=== PATIENT | male | born 1970 | race American Indian/Alaskan Native ===

== ENCOUNTER 2018-05-20 19:43 | Emergency (ER) | payer MEDICAID, MEDICARE ==
[2018-05-20] MEDS ORDERED: ZOFRAN IV STA (20:59)
[2018-05-20] MEDS ORDERED: TORADOL IV STA (20:59)
--- NOTE | 2018-05-20 21:01 | Emergency Department Report ---
Blank Doc - Documentation Documentation: abdominal pain right lower quad abdominal pain for 1 day. nausea without vomit or diarrhea
[2018-05-20 21:43] LABS: Basophils % (Auto) 0.1 % (0.0-1.8); Eosinophils % (Auto) 0.3 % (0.0-4.3); Hematocrit 42.3 % (35.5-45.6); Hemoglobin 13.9 gm/dl (11.8-15.2); Lymphocytes # (Auto) 2.4 K/mm3 (1.2-5.4); Lymphocytes % (Auto) 21.4 % (13.4-35.0); Mean Corpuscular HGB Conc 33 % (32-34); Mean Corpuscular Volume 89 fl (84-94); Monocytes # (Auto) 0.7 K/mm3 (0.0-0.8); Monocytes % (Auto) 6.4 % (0.0-7.3); Platelet Count 170 K/mm3 (140-440); Red Blood Count 4.77 M/mm3 (3.65-5.03); Red Cell Distribution Width 13.8 % (13.2-15.2)
[2018-05-20 21:57] LABS: Alanine Aminotransferase 72 units/L (7-56); Albumin 4.5 g/dL (3.9-5); BUN/Creatinine Ratio 16; Blood Urea Nitrogen 16 mg/dL (9-20); Calcium 10.1 mg/dL (8.4-10.2); Hemolysis Index 45
[2018-05-20 21:59] LABS: Bilirubin,Direct 0.3 mg/dL (0-0.2)
--- NOTE | 2018-05-20 23:56 | Cat Scan Report ---
PROCEDURE: CT ABDOMEN PELVIS W CON TECHNIQUE: Computerized axial tomography of the abdomen and pelvis was performed after the IV inject ion of iodinated nonionic contrast. CT DOSE LENGTH PRODUCT: mGycm HISTORY: Abdominal Pain COMPARISONS: None . FINDINGS: Liver, spleen, and adrenal glands are within normal limits. Bilateral kidneys demonstrate normal enha ncement without hydronephrosis. Urinary bladder is normally distended with normal outlines. Pancreati c duct is dilated with multiple calculi.. Aorta is of normal caliber. There is no free fluid or free air. Gallbladder is well-distended with normal outlines. Small bowel loops are within normal limits a ppendix is normal. There is mild degree of prostatomegaly. Vertebral height is normal. IMPRESSION: Chronic pancreatitis with dilated pancreatic duct Mild degree of prostatomegaly This document is electronically signed by Rito Soriano MD., May 20 2018 11:54:08 PM ET
[2018-05-21 00:23] LABS: Bilirubin,Urine NEG (Negative); Blood,Urine NEG (Negative); Color,Urine Amber (Yellow); Mucus,Urine 1+ /HPF; Urobilinogen,Urine < 2.0 mg/dL (<2.0)
[2018-05-21] MEDS ORDERED: DILAUDID IV ONE ×2 (01:15→03:28)
[2018-05-21] MEDS ORDERED: NACL 0.9% 1000 ML 1,000 ML IV ONE (01:15)
[2018-05-21] MEDS ORDERED: ZOFRAN IV ONE ×2 (01:16→03:28)
[2018-05-21] MEDS ORDERED: ZOFRAN ONE ×2 (01:17→03:27)
[2018-05-21] MEDS ORDERED: NACL 0.9% 1000 ML 1,000 ML ONE (01:18)
[2018-05-21] MEDS ORDERED: DILAUDID ONE ×3 (01:18→03:28)
--- NOTE | 2018-05-21 01:56 | Emergency Department Report ---
ED Abdominal Pain HPI - General Chief Complaint: Abdominal Pain Stated Complaint: ABD PAIN/NAUSEA Time Seen by Provider: 05/20/18 20:58 Source: patient Mode of arrival: Ambulatory Limitations: No Limitations - History of Present Illness Initial Comments: 47-year-old -[place] male comes to the emergency room reporting abdominal pain. Patient reports that he's had nausea but has not vomited. Patient reports is not able to eat secondary to nausea and abdominal pain. Patient denies any alcohol use no new medications. Patient denies any fever no chills. Patient reports that he took a hard or cold on this a.m. Patient does have a past past medical history of acute pancreatitis and diabetes. MD Complaint: abdominal pain Location: RLQ Radiation: none Migration to: no migration Severity: severe Severity scale (0 -10): 8 Quality: aching, sharp Consistency: constant Improves With: nothing Worsens With: movement Associated Symptoms: nausea. denies: vomiting, diarrhea, constipation - Related Data Home Medications Medication Instructions Recorded Confirmed Last Taken Gemfibrozil [Lopid] 600 mg PO BID 08/15/13 04/22/14 04/21/14 [place]-3 Fatty Acids [Fish Oil] 1,200 mg PO BID 08/15/13 04/22/14 02/04/14 Pravastatin Sodium [Pravastatin] 10 mg PO HS 08/15/13 04/22/14 02/04/14 Insulin Glargine,Hum.rec.anlog 46 units SQ HS 02/05/14 04/21/14 04/21/14 [Lantus] Niacin [Niacin ER] 500 mg PO BID 04/21/14 04/21/14 Unknown Previous Rx's Medication Instructions Recorded Last Taken Type Insulin Aspart [NovoLOG 100 10 unit SQ AC #1 vial 04/23/14 Unknown Rx UNITS/ML VIAL] Omeprazole [PriLOSEC] 40 mg PO DAILY #30 capsule. 04/23/14 Unknown Rx Oxycodone HCl [Oxecta] 10 mg PO Q8H PRN #30 tablet.orl 04/23/14 Unknown Rx Oxycodone HCl/Acetaminophen 1 each PO Q4-6H PRN #10 tablet 05/21/18 Unknown Rx [Percocet 10/325 mg] Allergies Allergy/AdvReac Type Severity Reaction Status Date / Time morphine Allergy Unknown Verified 02/05/14 00:18 ED Review of Systems ROS: Stated complaint: ABD PAIN/NAUSEA Other details as noted in HPI Comment: All other systems reviewed and negative Gastrointestinal: abdominal pain, nausea ED Past Medical Hx - Past Medical History Previous Medical History?: Yes Hx Congestive Heart Failure: No Hx Diabetes: Yes Hx Asthma: No Hx COPD: No Hx HIV: No Additional medical history: pancreatitis - Surgical History Past Surgical History?: Yes Additional Surgical History: bowel S/P - Social History Smoking Status: Current Every Day Smoker Substance Use Type: None - Medications Home Medications: Home Medications Medication Instructions Recorded Confirmed Last Taken Type Gemfibrozil [Lopid] 600 mg PO BID 08/15/13 04/22/14 04/21/14 History [place]-3 Fatty Acids [Fish Oil] 1,200 mg PO BID 08/15/13 04/22/14 02/04/14 Histo ry Pravastatin Sodium [Pravastatin] 10 mg PO HS 08/15/13 04/22/14 02/04/14 History Insulin Glargine,Hum.rec.anlog 46 units SQ HS 02/05/14 04/21/14 04/21/14 History [Lantus] Niacin [Niacin ER] 500 mg PO BID 04/21/14 04/21/14 Unknown History Insulin Aspart [NovoLOG 100 10 unit SQ AC #1 vial 04/23/14 Unknown Rx UNITS/ML VIAL] Omeprazole [PriLOSEC] 40 mg PO DAILY #30 capsule. 04/23/14 Unknown Rx Oxycodone HCl [Oxecta] 10 mg PO Q8H PRN #30 tablet.orl 04/23/14 Unknown Rx Oxycodone HCl/Acetaminophen 1 each PO Q4-6H PRN #10 tablet 05/21/18 Unknown Rx [Percocet 10/325 mg] ED Physical Exam - General Limitations: No Limitations General appearance: alert, in no apparent distress - Head Head exam: Present: atraumatic, normocephalic - Eye Eye exam: Present: normal appearance - ENT ENT exam: Present: mucous membranes moist - Respiratory Respiratory exam: Present: normal lung sounds bilaterally. Absent: respiratory distress - Cardiovascular Cardiovascular Exam: Present: regular rate, normal rhythm. Absent: systolic murmur, diastolic murmur, rubs, gallop - GI/Abdominal GI/Abdominal exam: Present: soft, tenderness. Absent: distended - Extremities Exam Extremities exam: Present: normal inspection, full ROM - Back Exam Back exam: Present: normal inspection - Neurological Exam Neurological exam: Present: alert, oriented X3 - Psychiatric Psychiatric exam: Present: normal affect, normal mood - Skin Skin exam: Present: warm, dry, intact, normal color. Absent: rash ED Course Vital Signs 05/20/18 05/21/18 20:59 00:30 Temperature 97.8 F Pulse Rate 67 Respiratory 16 20 Rate Blood Pressure 110/71 O2 Sat by Pulse 98 Oximetry - Reevaluation(s) Reevaluation #1: 05/21/18 05:20 Patient reports he feels much better after having 2 rounds of Dilaudid 2 mg with Zofran 4 mg 2. Patient's had 1 L of fluid. ED Medical Decision Making - Lab Data Result diagrams: 05/20/18 21:33 05/20/18 21:33 - Radiology Data Radiology results: report reviewed CT abdomen with contrast, impression: Chronic pancreatitis with dilated pancreatic duct mild degree of prostatomegaly. - Medical Decision Making Patient has been evaluated by this provider in fast track. Patient's had CBC CMP CT with contrast, Dilaudid total of 4 mg IV, Zofran total of 8 mg IV, normal saline total 1 L. Patient will be discharged home with a follow-up with his regional driver or primary care provider. Patient verbalizes understanding Critical care attestation.: If time is entered above; I have spent that time in minutes in the direct care of this critically ill patient, excluding procedure time. ED Disposition Clinical Impression: Chronic pancreatitis Qualifiers: Pancreatitis type: other Qualified Code(s): K86.1 - Other chronic pancreatitis Disposition: - TO HOME OR SELFCARE Is pt being admited?: No Does the pt Need Aspirin: No Condition: Stable Instructions: Biliary Colic (ED), Acute Abdominal Pain (ED) Additional Instructions: Please take pain medication as prescribed. Do not operate heavy machinery while taking pain medications. Follow-up with her regional driver. Prescriptions: Oxycodone HCl/Acetaminophen [Percocet 10/325 mg] 1 each PO Q4-6H PRN #10 tablet PRN Reason: Pain Referrals: [facility]CTOR [Primary Care Provider] - 3-5 Days [facility] [Provider Group] - 3-5 Days [facility] [Provider Group] - 3-5 Days Forms: Work/School Release Form(ED), Accompanied Note
[2018-05-21 03:22] VITALS: BP 128/84
[2018-05-21] MEDS ORDERED: BENADRYL IV ONE (04:28)
[2018-05-21] MEDS ORDERED: BENADRYL ONE (04:32)
== END 2018-05-21 05:44 | disposition home or self-care (01) ==
LOC: ED 19:43
DX: K86.1 Other chronic pancreatitis (principal); F17.200 Nicotine dependence, unspecified, uncomplicated; E11.9 Type 2 diabetes mellitus without complications; Z98.890 Other specified postprocedural states
CPT/HCPCS: 36415; 74177; 80048; 80076; 81001; 83690; 85025; 96361; 96374; 96375; 96376; 99284; J1170; J1200; J1885; J2405; J7030; Q9967

== ENCOUNTER 2019-06-11 12:25 | Outpatient (CLI) | payer OTHER ==
--- NOTE | 2019-06-11 13:36 | Mammography Report ---
BILATERAL DIGITAL DIAGNOSTIC MAMMOGRAM WITH CAD -- 06/11/2019 RIGHT LIMITED BREAST ULTRASOUND INDICATION: Patient presents for evaluation of right breast pain and six-month follow-up of probably benign gynecomastia in the right breast. TECHNIQUE: Digital bilateral mammographic imaging was performed. Limited ultrasound was performed. T his examination was interpreted with the benefit of Computer-Aided Detection (CAD) analysis. COMPARISON: Prior mammogram and right breast ultrasound 12/24/2018 FINDINGS: Breast Density: There are scattered areas of fibroglandular density. MAMMOGRAPHIC FINDINGS: There is no evidence of dominant mass, suspicious calcifications or architectu ral distortion in either breast. Asymmetric, right greater than left, gynecomastia is noted. ULTRASOUND FINDINGS: Targeted ultrasound evaluation was performed of the area of interest. Targeted ultrasound of the area of pain in the subareolar right breast reveals fibroglandular tissue most com patible with gynecomastia. No suspicious cystic or solid lesion identified. IMPRESSION: 1. Findings compatible with asymmetric, right greater than left, gynecomastia. No suspicious mammogra phic or sonographic abnormality identified. Clinical correlation for possible underlying etiology is recommended. Follow up recommendation: No recall. BI-RADS Category 2: Benign. A "normal" or negative report should not discourage follow up or biopsy of a clinically significant f inding. A written summary of these findings will be mailed to the patient. The patient will be entered into a mammography reporting system which will generate a reminder letter for the patient's next appointmen t at the appropriate interval. According to the [employer], yearly mammograms are recommended starting at age 40 and continuing as long as a woman is in good health. Breast MRI is recommended for women with an josefa roximately 20-25% or greater lifetime risk of breast cancer, including women with a strong family his tory of breast or ovarian cancer and women who have been treated for Hodgkin's disease. Signer Name: Paty Carmen MD Signed: 06/11/2019 1:31 PM Workstation Name: [email or web address]
== END 2019-06-11 12:26 | disposition home or self-care (01) ==
LOC: SPVWC 12:25
PROVIDERS: ATTEND Family Medicine
DX: R92.8 Other abnormal and inconclusive findings on diagnostic imaging of breast (principal)
CPT/HCPCS: 77066

== ENCOUNTER 2020-03-08 09:32 | Outpatient (CLI) | payer MEDICARE, OTHER ==
--- NOTE | 2020-03-08 11:02 | Mammography Report ---
LEFT DIGITAL DIAGNOSTIC MAMMOGRAM WITH CAD CONVENTIONAL, 03/08/2020 LEFT LIMITED BREAST ULTRASOUND CLINICAL INFORMATION / INDICATION: Left breast tenderness and lump. TECHNIQUE: Digital left mammographic imaging was performed. Spot compression views were obtained. [place] ited ultrasound was performed. This examination was interpreted with the benefit of Computer-Aided De tection (CAD) analysis. COMPARISON: 12/24/18. FINDINGS: Breast Density: The breasts are heterogeneously dense, which may obscure small masses. MAMMOGRAPHIC FINDINGS: No dominant mass, suspicious calcifications, or architectural distortion in th e left breast. Breast tissue in the left subareolar region has increased in general since the prior s tudy characteristic of gynecomastia. ULTRASOUND FINDINGS: Targeted ultrasound evaluation was performed of the area of interest. There is moderate flame-shaped hypoechoic fibroglandular tissue in the left subareolar region at the site of the patient's palpable abnormality and pain. The tissue measures approximately 4.5 x 3.1 x 1.4 cm. No discrete mass, distortion, posterior shadowing or other significant abnormality is seen. IMPRESSION: Moderate left gynecomastia has increased since the prior study. No suspicious mammographi c or sonographic abnormality. Follow up recommendation: Clinical exam BI-RADS Category 2: Benign. A "normal" or negative report should not discourage follow up or biopsy of a clinically significant f inding. A written summary of these findings will be mailed to the patient. The patient will be entered into a mammography reporting system which will generate a reminder letter for the patient's next appointmen t at the appropriate interval. According to the [employer], yearly mammograms are recommended starting at age 40 and continuing as long as a woman is in good health. Breast MRI is recommended for women with an josefa roximately 20-25% or greater lifetime risk of breast cancer, including women with a strong family his tory of breast or ovarian cancer and women who have been treated for Hodgkin's disease. Signer Name: Alfredo Bravo MD Signed: 03/08/2020 10:58 AM Workstation Name: [email or web address]
== END 2020-03-08 09:33 | disposition home or self-care (01) ==
LOC: SPVWC 09:32
PROVIDERS: ATTEND Surgery
DX: N62 Hypertrophy of breast (principal); N63.13 Unspecified lump in the right breast, lower outer quadrant; R92.8 Other abnormal and inconclusive findings on diagnostic imaging of breast

== ENCOUNTER 2020-07-05 10:43 | Outpatient (CLI) | payer MEDICARE ==
--- NOTE | 2020-07-05 11:38 | Mammography Report ---
DIGITAL DIAGNOSTIC MAMMOGRAM WITH CAD , 07/05/2020 CLINICAL INFORMATION / INDICATION: Bilateral breast pain TECHNIQUE: Digital bilateral mammographic imaging was performed. This examination was interpreted with the benefit of Computer-aided Detection analysis. COMPARISON: 12/24/2018 and 06/11/2019 mammograms FINDINGS: Breast Density: There are scattered areas of fibroglandular density. No dominant mass, suspicious calcifications or architectural distortion in either breast. There is no mammographic correlate for the complaint of bilateral breast pain. Overall, no interval c hange. IMPRESSION: No mammographic evidence of malignancy. No mammographic correlate for the complaint of bilateral breast pain. Follow up recommendation: Routine yearly. Clinical correlation for bilateral breast pain. BI-RADS Category 2: Benign. A "normal" or negative report should not discourage follow up or biopsy of a clinically significant f inding. A written summary of these findings will be mailed to the patient. The patient will be entered into a mammography reporting system which will generate a reminder letter for the patient's next appointmen t at the appropriate interval. According to the [employer], yearly mammograms are recommended starting at age 40 and continuing as long as a woman is in good health. Breast MRI is recommended for women with an josefa roximately 20-25% or greater lifetime risk of breast cancer, including women with a strong family his tory of breast or ovarian cancer and women who have been treated for Hodgkin's disease. Signer Name: Lisa Falk MD Signed: 07/05/2020 11:33 AM Workstation Name: [email or web address]
== END 2020-07-05 10:44 | disposition home or self-care (01) ==
LOC: SPVWC 10:43
PROVIDERS: ATTEND Surgery
DX: N63.14 Unspecified lump in the right breast, lower inner quadrant (principal); R92.8 Other abnormal and inconclusive findings on diagnostic imaging of breast
CPT/HCPCS: 77066